=== PATIENT | female | born 1955 | race Hispanic/Latino ===

== ENCOUNTER → 2023-07-18 | Outpatient (CLI) | payer OTHER, MEDICARE | END | disposition home or self-care (01) | LOC: SHCH 07:35 | PROVIDERS: ATTEND Internal Medicine | DX: I08.1 Rheumatic disorders of both mitral and tricuspid valves (principal); R06.02 Shortness of breath | CPT/HCPCS: 93306 ==

== ENCOUNTER → 2024-01-21 | Outpatient (CLI) | payer OTHER | END | disposition home or self-care (01) | LOC: RAH 14:57 | PROVIDERS: ATTEND Internal Medicine | DX: Z13.6 Encounter for screening for cardiovascular disorders (principal); K44.9 Diaphragmatic hernia without obstruction or gangrene | CPT/HCPCS: 75571 ==

== ENCOUNTER → 2025-02-28 | Outpatient (CLI) | payer OTHER ==
--- NOTE | 2025-02-28 15:18 | HMCIMG ---
HISTORY: Large hiatal hernia TECHNIQUE: Single and double-contrast upper GI was performed. No prior study is available for comparison. FINDINGS: Initial overhead precision grinder film shows a nonobstructive bowel gas pattern. No osseous abnormalities. The esophagus demonstrates normal peristalsis. No persistent areas of narrowing, dilation, mucosal abnormalities, or filling defects within the esophagus. There is a large hiatal hernia. There is a grade 3 esophageal reflux. There is mild cardiomegaly. There is uncoiling atherosclerotic changes thoracic aorta. The stomach distends normally. No evidence of gastric ulcer disease. There are no masses or infiltrating lesions of the stomach. There is no deformity of the duodenal cap. The duodenal loop and visualized portions of the proximal jejunum are normal. IMPRESSION: Large hiatal hernia with grade 3 esophageal reflux. Mild cardiomegaly
== END | disposition home or self-care (01) ==
LOC: RAH 10:49
PROVIDERS: ATTEND Surgery
DX: K21.9 Gastro-esophageal reflux disease without esophagitis (principal); K44.9 Diaphragmatic hernia without obstruction or gangrene; I51.7 Cardiomegaly
CPT/HCPCS: 74240

== ENCOUNTER → 2025-03-10 | Outpatient (CLI) | payer OTHER ==
[~2025-03-10] MED LIST: IOHEXOL 350 MG/ML 100ML INFUS..BTL IV ONE
--- NOTE | 2025-03-22 11:54 | CARDIOLOGY ---
RAD REPORT: CORNARY CT ANGIO RADIOLOGY REPORT: CORONARY CT ANGIOGRAPHY DATE: March 10, 2025 QUALITY: Excellent CLINICAL HISTORY AND INDICATION: [ chest pain ] TECHNIQUE: After obtaining a preliminary drawing tender image, contrast imaging performed on an [employer] [id number] scanner. A dedicated, limited window, coronary imaging protocol was used, with single breath-hold, retrospective ECG gating, and automated arrhythmia rejection. 100 cc of low osmolar contrast agent: Omnipaque 350 was delivered via a 18-gauge IV catheter in the right antecubital fossa, using a power injector and followed by 60 cc of normal saline bolus as a chaser. Collimated images were reformatted at 0.5 mm intervals, and sent to an offline independent workstation for interpretation, using 3D anatomic reconstructions: Curved multiplanar reconstructions, maximum intensity projections, and multiplanar imaging. No metoprolol was administered prior to scanning due to low baseline heart rate. 0.4 mg SL nitroglycerin was given. CORONARY ARTERY DESCRIPTIONS: The coronary arteries arise in normal position. Left main coronary artery: Normal caliber vessel that bifurcates into the LAD and LCx. No stenosis. Left anterior descending coronary artery: Normal caliber vessel and gives rise to diagonal and septal branches. There is mixed calcified and noncalcified plaque in the ostial/proximal LAD with 70-80% stenosis. Left circumflex coronary artery: Normal caliber, nondominant and gives rise to a large OM branch. No stenosis. Right coronary artery: Large, dominant vessel giving rise to the PL and PDA branches. No stenosis. CAD-RADs: 4A, severe stenosis, recommend left heart catheterization. Alina Espino MD Cardiovascular Disease [facility] ALINA ESPINO MD Mar 22, 2025 11:54
== END | disposition home or self-care (01) ==
LOC: RAH 07:29
PROVIDERS: ATTEND Internal Medicine
DX: I25.10 Atherosclerotic heart disease of native coronary artery without angina pectoris (principal); R07.9 Chest pain, unspecified
CPT/HCPCS: 75574; Q9967